=== PATIENT | female | born 1980 | race African-American/Black ===

== ENCOUNTER 2020-07-14 18:37 | Emergency (ER) | payer MEDICAID ==
[~2020-07-14] VITALS: Ht 154.9 cm; Wt 68.0 kg
--- NOTE | 2020-07-14 19:00 | NUR ---
ED Nurse Note: Pt wheeled in to ED c/o left foot pain S/P fall today. Per pt, she heard a crack after. AAOx4, verbally responsive. No SOB. on room air.
--- NOTE | 2020-07-14 19:03 | NUR ---
ED Nurse Note: Xray at bedside.
--- NOTE | 2020-07-14 19:05 | NUR ---
ED Nurse Note: Recieved report from Henry to resume care, pt just had x-rays completed on left ankle, gave pt pillow for elevationand comfort and ice pack for pain, will resume care as primary nurse and continue to closely monitor while waiting for results.
--- NOTE | 2020-07-14 19:11 | Emergency Room Report ---
History of Present Illness General Chief Complaint: Lower Extremity Injury Source: Patient Present Illness HPI 40 YO Female presents to the ED c/o 06/12 in severity localized left knee tenderness and swelling since s/p mechanical slip and fall earlier today. Pt. reports that She is unable to bear weight. Pt. reports her leg feels weak like it will give out on her if she attempts to put weight on it. She reports pain shoots down her left leg. She denies midline neck or back pain. She denies bruising. 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 She denies paresthesias or skin color changes. Allergies: Coded Allergies: No Known Allergies (Unverified , 07/14/20) COVID-19 Screening Contact w/high risk pt: No Experienced COVID-19 symptoms?: No COVID-19 Testing performed DENTAL FRONT OFFICE ASSISTANT: No Patient History Past Medical History: see triage record Past Surgical History: none Pertinent Family History: none Last Menstrual Period: 05/17/2020 Now: No Reviewed Nursing Documentation: PMH: Agreed; PSxH: Agreed Nursing Documentation-PMH Past Medical History: No Stated History Review of Systems All Other Systems: negative except mentioned in HPI Physical Exam Vital Signs Date Time Temp Pulse Resp B/P (MAP) Pulse Ox O2 Delivery O2 Flow Rate FiO2 07/14/20 18:57 98.4 77 20 125/67 (86) 98 Room Air Sp02 EP Interpretation: reviewed, normal General Appearance: no apparent distress, alert, GCS 15, non-toxic Head: normocephalic, atraumatic Eyes: bilateral eye normal inspection, bilateral eye PERRL ENT: hearing grossly normal, normal voice Neck: full range of motion Respiratory: chest non-tender, lungs clear, normal breath sounds, speaking full sentences Cardiovascular #1: regular rate, rhythm, normal capillary refill Cardiovascular #2: 2+ dorsalis pedis (L) Musculoskeletal: back normal, tender - TTP anterior and latera aspects of the left knee, no anterior or posterior drawer signs. Pain and some mild laxity with valgus stress. No obvious deformity. moderate lateral swelling. Neurologic: alert, motor strength/tone normal, oriented x3, sensory intact, responsive, speech normal Psychiatric: judgement/insight normal Medical Decision Making PA Attestation Dr. Segura Is my supervising Physician whom patient management has been discussed with. Diagnostic Impression: Primary Impression: Sprain of LCL (lateral collateral ligament) of knee Qualified Codes: S83.422A - Sprain of lateral collateral ligament of left knee, initial encounter Additional Impression: Left knee sprain Qualified Codes: S83.422A - Sprain of lateral collateral ligament of left knee, initial encounter ER Course 40 YO Female presents to the ED c/o 06/12 in severity localized left knee tenderness and swelling since s/p mechanical slip and fall earlier today. Pt. reports that She is unable to bear weight. Pt. reports her leg feels weak like it will give out on her if she attempts to put weight on it. She reports pain shoots down her left leg. She denies midline neck or back pain. She denies bruising. 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 She denies paresthesias or skin color changes. Ddx considered but are not limited to Fracture, dislocation, contusion, Sprain/Strain/Spasm, ligament or meniscal injury. Popliteal artery injury just to name a few Vital signs: are WNL, pt. is afebrile H&PE are most consistent with musculoskeletal injury will perform imaging to r/o fractures/dislocations. PT. NVI, good pulses distally. ORDERS: - X-ray Left Knee - NO acute fracture ED INTERVENTIONS: --Knee Immobilizer splint applied to the Left Knee by final operations technician. Pt. remains neurovascularly intact. --Patient is provided with crutches and instructed on their use DISCHARGE: At this time pt. is stable for d/c to home. Will provide printed patient care instructions, and any necessary prescriptions. Care plan and follow up instructions have been discussed with the patient prior to discharge. Other X-Ray Diagnostic Results Other X-Ray Diagnostic Results : X-Ray ordered: Left knee # of Views/Limited Vs Complete: 3 View Indication: Pain EP Interpretation: Yes PA Xray: Interpretation reviewed, by supervising MD, and agrees with findings. Interpretation: no dislocation, no fractures, other - Lateral knee soft tissue swelling, no obvious effusion Impression: No acute disease Electronically Signed by: Ghada Flores PA-C Last Vital Signs Date Time Temp Pulse Resp B/P (MAP) Pulse Ox O2 Delivery O2 Flow Rate FiO2 07/14/20 18:57 98.4 77 20 125/67 (86) 98 Room Air Status: improved Disposition: HOME, SELF-CARE Condition: Stable Scripts Ibuprofen* (MOTRIN*) 600 Mg Tablet 600 MG ORAL THREE TIMES A DAY, #20 TAB Prov: Ghada Flores 07/14/20 Hydrocodone Bit/Acetaminophen 5-325* (NORCO 5-325 TABLET*) 1 Each Tablet 1 TAB ORAL Q6H PRN for FOR PAIN, #12 TAB 0 Refills Prov: Ghada Flores 07/14/20 Referrals: Orthopedic Urgent Care Patient Instructions: Knee Sprain Additional Instructions: Take medications as directed. Do not drink alcohol, drive, or operate heavy machinery while taking [place] as this may cause drowsiness. Follow up with an SAMPLE DISTRIBUTOR in 3-5 days, even if your symptoms have resolved. If symptoms persist MRI may be required at the discretion of your PCP or Ortho Specialist. ESPECIALLY WITH CONTINUED INSTABILITY OF KNEE --Please review list of primary care clinics, if you do not already have a primary care provider who can give you an Orthopedic Referral. Return sooner to ED if new symptoms occur, or current symptoms become worse. - Please note that this Emergency Department Report was dictated using [employer] cleaner technology software, occasionally this can lead to erroneous entry secondary to interpretation by the dictation equipment. Ghada Flores Jul 14, 2020 19:11
[2020-07-14] MEDS ORDERED: HYDROcodone/Acetamin 5/325 tab ORAL ONE (19:15)
--- NOTE | 2020-07-14 19:19 | Diagnostic Imaging Report ---
EXAM: XR Left Knee, 3 Views CLINICAL HISTORY: PAIN TECHNIQUE: Three views of the left knee. COMPARISON: No relevant prior studies available. FINDINGS: Bones/joints: No apparent fracture. Moderate effusion. Well- corticated ossification adjacent to the medial femoral condyle, may be degenerative in nature or from old trauma. Soft tissues: Soft tissue swelling. IMPRESSION: No apparent acute fracture. Consider follow-up in 7-10 days or cross- sectional imaging if warranted.
[2020-07-14] MEDS ORDERED: NORCO 5-325 TA1 EAC1 ORAL (19:40)
[2020-07-14] MEDS ORDERED: IBUPROFEN600 M1 ORAL (19:40)
[2020-07-14 19:45] VITALS: BP 129/73
--- NOTE | 2020-07-14 19:45 | NUR ---
ER DISCHARGE NOTE: Patient is cleared to be discharged per ERMD, pt is aox4, on room air, with stable vital signs. pt was given dc and prescription instructions, pt was able to verbalize understanding, pt id band removed without complications. pt is able to ambulate with steady gait. pt took all belongings. pt also given knee immobilizer, and crutches with crutch training, pt return demonstrates proper use and verbalizes safety measures.
[2020-07-14 19:50] VITALS: BP 129/73
== END 2020-07-14 19:50 | disposition home or self-care (01) ==
LOC: EMR 19:33
DX: S83.422A Sprain of lateral collateral ligament of left knee, initial encounter (principal); W01.0XXA Fall on same level from slipping, tripping and stumbling without subsequent striking against object, initial encounter; Y92.9 Unspecified place or not applicable
CPT/HCPCS: 73562; Z7502; 99283